=== PATIENT | female | born 1970 | race Caucasian/White ===

== ENCOUNTER 2021-02-08 12:43 | Emergency (ER) | payer OTHER ==
[2021-02-08 12:57] VITALS: BP 188/97; PULSE 70; RESP 18; TEMP 98.4
--- NOTE | 2021-02-08 13:25 | XR ---
PA chest and right ribs. HISTORY: Chest pain. COMPARISON: None. TECHNIQUE: PA chest and 4 views the right ribs were obtained. CHEST: The lungs are clear. There is no pleural effusion or pneumothorax. Heart, mediastinum and hilum are n ormal. The osseous structures are intact. Right wrist: There is no fracture or focal intraosseous abnormality. There is no pleural effusion or pneumothorax. IMPRESSION: No significant abnormality seen in the chest or right ribs.
--- NOTE | 2021-02-08 13:44 | ED ---
General Adult HPI - General Chief complaint: Back Pain/Injury Stated complaint: fell last week sidepain Time Seen by Provider: 02/08/21 13:33 Source: patient, RN notes reviewed Mode of arrival: ambulatory Limitations: no limitations - History of Present Illness Initial comments: This is a 50-year-old female presents emergency from chief complaint of right- sided rib pain. Patient states that she was washing her dog in the bathtub states that she put her arm up against a wall states that she slipped falling onto the right side of her rib. Patient states that she felt a pop. She's had pain meds seems to be worsening. It is worse with deep inspiration and movement. No shortness of breath no abdominal pain no ecchymotic areas. - Related Data Previous Rx's Medication Instructions Recorded traMADol HCl [Ultram] 50 mg PO Q6H PRN #12 tab 02/08/21 Allergies Allergy/AdvReac Type Severity Reaction Status Date / Time No Known Allergies Allergy Verified 02/08/21 12:57 Review of Systems ROS Statement: Those systems with pertinent positive or pertinent negative responses have been documented in the HPI. ROS Other: All systems not noted in ROS Statement are negative. Past Medical History Past Medical History: No Reported History History of Any Multi-Drug Resistant Organisms: None Reported Past Surgical History: No Surgical Hx Reported Past Psychological History: No Psychological Hx Reported Smoking Status: Current every day smoker Past Alcohol Use History: None Reported, Rare Past Drug Use History: None Reported General Exam Limitations: no limitations General appearance: alert, in no apparent distress Head exam: Present: atraumatic, normocephalic, normal inspection Eye exam: Present: normal appearance, PERRL, EOMI. Absent: scleral icterus, conjunctival injection, periorbital swelling ENT exam: Present: normal exam, mucous membranes moist Neck exam: Present: normal inspection, full ROM. Absent: tenderness, meningismus, lymphadenopathy Respiratory exam: Present: normal lung sounds bilaterally, chest wall tenderness (Moderate right-sided rib tenderness). Absent: respiratory distress, wheezes, rales, rhonchi, stridor Cardiovascular Exam: Present: regular rate, normal rhythm, normal heart sounds. Absent: systolic murmur, diastolic murmur, rubs, gallop, clicks GI/Abdominal exam: Present: soft, normal bowel sounds. Absent: distended, tenderness, guarding, rebound, rigid Neurological exam: Present: alert, oriented X3 Course Vital Signs 02/08/21 12:54 Temperature 98.4 F Pulse Rate 70 Respiratory 18 Rate Blood Pressure 188/97 O2 Sat by Pulse 100 Oximetry Medical Decision Making - Medical Decision Making X-rays read by radiologist showed no acute fracture though there is felt to be clinical fracture. Patient will be discharged with pain control no pneumothorax. Return parameters were discussed. Disposition Clinical Impression: Right rib fracture Disposition: HOME SELF-CARE Condition: Stable Instructions (If sedation given, give patient instructions): Rib Fracture (ED) Additional Instructions: Please return to the Emergency Department if symptoms worsen or any other concerns. Prescriptions: traMADol HCl [Ultram] 50 mg PO Q6H PRN #12 tab PRN Reason: Pain Is patient prescribed a controlled substance at d/c from ED?: Yes When asked, does pt state using other controlled substances?: No If prescribed controlled substance>3 days was MAPS reviewed?: Prescribed <3 Days If opioid is for acute pain is fill amount 7 days or less?: Yes If Rx opioid, was Start Talking consent form obtained?: Yes Referrals: Juarez Quintero MD [Primary Care Provider] - 1-2 days Time of Disposition: 13:43
== END 2021-02-08 13:54 | disposition home or self-care (01) ==
LOC: EC 12:43
DX: S22.31XA Fracture of one rib, right side, initial encounter for closed fracture (principal); F17.200 Nicotine dependence, unspecified, uncomplicated; W01.0XXA Fall on same level from slipping, tripping and stumbling without subsequent striking against object, initial encounter
CPT/HCPCS: 99283